=== PATIENT | male | born 1985 | race Hispanic/Latino ===

== ENCOUNTER 2017-04-09 12:55 | Emergency (ER) | payer SELFPAY ==
[~2017-04-09] VITALS: Ht 160 cm; Wt 106.6 kg
[2017-04-09] MEDS ORDERED: HYDROCODONE/APAP 7.5MG-325MG 1 EA TAB PO PRN (13:15)
--- NOTE | 2017-04-09 14:01 | Diagnostic Imaging Report ---
PROCEDURE:X-RAY LEFT FOOT, COMPLETE COMPARISON:None. INDICATIONS:fall, left foot pain FINDINGS: There are no fractures, dislocations, lytic or blastic lesions. The bones are well-mineralized. The soft-tissues are unremarkable. CONCLUSION: No acute fracture or dislocation of the left foot. Dictated by: Inocencio Buchanan M.D. on 04/09/2017 at 14:09 Electronically approved by: Inocencio Buchanan M.D. on 04/09/2017 at 14:09
--- NOTE | 2017-04-09 14:02 | Diagnostic Imaging Report ---
PROCEDURE:ANKLE 3+ VIEWS LEFT INDICATION: Fall COMPARISON:None. CONCLUSION: No acute fracture or dislocation of the left ankle. Dictated by: Inocencio Buchanan M.D. on 04/09/2017 at 14:11 Electronically approved by: Inocencio Buchanan M.D. on 04/09/2017 at 14:11
[2017-04-09 15:08] VITALS: BP 158/91
== END 2017-04-09 16:05 | disposition home or self-care (01) ==
LOC: ER 12:55
DX: S93.432A Sprain of tibiofibular ligament of left ankle, initial encounter (principal); Y93.89 Activity, other specified; Y99.0 Civilian activity done for income or pay
CPT/HCPCS: 99284